=== PATIENT | female | born 1975 | race African-American/Black ===

== ENCOUNTER 2022-01-14 15:18 | Emergency (ER) | payer OTHER, SELFPAY ==
--- NOTE | ~2022-01-14 | CT_ITS ---
EXAMINATION: CT abdomen pelvis w con DATE: 01/14/2022 21:15 INDICATION: Left upper quadrant abdominal pain radiating to the back. TECHNIQUE: Computed tomography (CT) of the abdomen and pelvis was performed with 100 cc Omnipaque 300 intravenous contrast. The dose-length product was 1001.37 mGy-cm. Automated exposure control and ite rative reconstruction technique were employed. COMPARISON: None. FINDINGS: Lung bases are unremarkable. Heart size normal. No significant pleural or pericardial effus ion. There is mild thickening of the gastric wall, suspicious for gastritis. There is mild thickening of the descending and proximal sigmoid colon. Small fat-containing umbilical hernia. The spleen, pancreas, adrenal glands and kidneys are unremarkable. Fatty infiltration of the liver. G allbladder is present. No significant vascular abnormality. No lymphadenopathy. Uterus is retroverted . Bladder is not well distended for evaluation. No acute osseous abnormality. No free air or free flu id. IMPRESSION: 1. Mild gastric wall thickening, suspicious for gastritis. 2: Mild thickening of the descending and proximal sigmoid colon, suspicious for colitis. 3: Hepatic steatosis. Reviewed, dictated and finalized at location A. IMPRESSION: 1. Mild gastric wall thickening, suspicious for gastritis. 2: Mild thickening of the descending and proximal sigmoid colon, suspicious fo r colitis. 3: Hepatic steatosis.
[2022-01-14 16:35] VITALS: BP 155/83; PULSE 75; RESP 16; TEMP 36.1; O2SAT 98
[2022-01-14 20:13] LABS: Basophils Percent Auto 0.3 % (0.2-1.2); Eosinophils Absolute Auto 0.1 K/mm3 (0-0.3); Eosinophils Percent Auto 0.6 % (0-4.4); Hematocrit 41.8 % (37.0-47.0); Hemoglobin 13.2 g/dL (12.0-15.0); Immature Granulocyte Absolute 0.03 K/mm3 (0.00-0.031); Immature Granulocyte Percent A 0.3 % (0-0.5); Lymphocytes Absolute Auto 2.36 K/mm3 (0.9-3.2); Lymphocytes Percent Auto 23.8 % (18.3-44.2); Mean Corpuscular HGB Conc 31.6 g/dl (32-36); Mean Corpuscular Hemoglobin 28.9 pg (26-34); Mean Corpuscular Volume 91.7 fl (80-100); Mean Platelet Volume 9.4 fl (7.4-10.4); Monocytes Absolute Auto 0.8 K/mm3 (0.1-0.6); Monocytes Percent Auto 8.1 % (2.6-8.5); Neutrophils Absolute Auto 6.6 K/mm3 (1.3-6.7); Neutrophils Percent Auto 66.9 % (45.5-73.1); Platelet Count Result 391 k/mm3 (150-375); Red Blood Count 4.56 M/mm3 (4.2-5.4); Red Cell Distribution Width 13.2 % (11.5-14.5); White Blood Count 9.9 K/mm3 (4.5-10.0)
[2022-01-14 20:22] LABS: Appearance Urine Clear (Clear); Bilirubin Urine Negative (Negative); Color Urine Yellow (Yellow); Glucose Urine UA Negative (Negative); Ketones Urine Negative (Negative); Leukocyte Esterase Ur Negative LEU/UL (Negative); Nitrate Urine Negative (Negative); Protein Urine Negative (Negative); Specific Grav Ur 1.015 (1.001-1.035); Urobilinogen Urine 0.2 mg/dL (<2.0); pH Urine 6.5 (5.0-9.0)
[2022-01-14 20:22] LABS: Alanine Aminotransferase 14 U/L (6-35); Albumin Level 4.3 g/dL (3.5-5.1); Alkaline Phosphatase 82 U/L (38-126); Anion Gap 9 mmol/L (8-16); Aspartate Amino Transferase 20 U/L (14-36); Bilirubin,Total 0.3 mg/dL (0.2-1.3); Blood Urea Nitrogen 11 mg/dL (7-17); Calcium 8.9 mg/dL (8.4-10.2); Carbon Dioxide 28 mmol/L (22-30); Chloride 103 mmol/L (98-107); Estimated CRCL calculation 79 ml/min; Estimated Glomerular Filt Rate 60; Glucose 91 mg/dL (65-110); Lipase 73 U/L (23-300); Potassium 3.9 mmol/L (3.4-5.0); Sodium 140 mmol/L (137-145)
[2022-01-14 20:26] LABS: Add Urine Microscopic? YES; Blood Urine Trace-Intact (Negative); Mucus Urine Rare /lpf; RBC Urine 0-2 /hpf (0-2); Squamous Epithelial Cell Urine Many /hpf (Few); WBC Urine 0-3 /hpf
--- NOTE | 2022-01-14 20:31 | ED.ABDPAIN ---
HPI - Abdominal Pain General Chief Complaint: Abdominal Pain Stated Complaint: LUQ abdominal pain radiating to back x 6 days Time Seen by Provider: 01/14/22 20:17 History of Present Illness HPI narrative: 46-year-old female presents to the emergency room for evaluation of left upper quadrant pain and left flank pain. Patient states the pain began suddenly earlier today. Denies any nausea, vomiting, diarrhea or constipation. Denies fevers. Denies dysuria. Reports was recently diagnosed with GERD, but this pain feels different. Patient is concerned she might have pancreatitis that she had 3 alcoholic drinks a week ago. Related Data Home Medications Medication Instructions Recorded Confirmed No Home Medications 01/14/22 01/14/22 Allergies Allergy/AdvReac Type Severity Reaction Status Date / Time Penicillins Allergy Rash Verified 01/14/22 15:20 Review of Systems Review of Systems: CONSTITUTIONAL: Denies fever, chills, or sweats. EYES: Denies visual changes, redness, or discharge. ENT: Denies rhinorrhea, congestion, sore throat, or otalgia. CARDIOVASCULAR: Denies chest pain, palpitations, or edema. RESPIRATORY: Denies cough or dyspnea. GASTROINTESTINAL: Left upper quadrant abdominal pain, left flank pain GENITOURINARY: Denies dysuria or hematuria. SKIN: Denies rash or itching. MUSCULOSKELETAL: Denies back pain, joint pain, or myalgia. NEUROLOGIC: Denies headache, numbness, dizziness, or weakness. PSYCHIATRIC: Denies anxiety or depression. Exam Narrative: GENERAL: Well-appearing, well-nourished, no physical limitations, and in no acute distress. HEAD: Normocephalic, atraumatic. EYES: Conjunctivae normal, PERRLA and EOMI. CHEST: Clear to auscultation. No respiratory distress. No wheezes rales or rhonchi. No tenderness. HEART: Regular rate and rhythm. No murmur heard. Normal peripheral pulses. ABDOMEN: Soft, LUQ tenderness, nondistended, normal active bowel sounds. BACK: No CVA tenderness EXTREMITIES: Normal range of motion. No edema. No clubbing or cyanosis SKIN: Warm, dry, no rash. No noted wounds NEURO: No focal deficits. Alert and oriented x3. MAEW. CN's II-XI intact bilaterally, normal gait PSYCH: Cooperative. Normal mood and affect. Course Vital Signs Vital signs: Vital Signs Temperature 36.1 C L 01/14/22 16:35 Pulse Rate 75 01/14/22 16:35 Respiratory Rate 16 01/14/22 16:35 Blood Pressure 155/83 H 01/14/22 16:35 Pulse Oximetry 98 01/14/22 16:35 Oxygen Delivery Room Air 01/14/22 16:35 Temperature 36.8 C 01/14/22 20:36 Pulse Rate 71 01/14/22 20:36 Respiratory Rate 20 01/14/22 20:36 Blood Pressure 172/99 H 01/14/22 20:36 Pulse Oximetry 100 01/14/22 20:36 Oxygen Delivery Room Air 01/14/22 16:35 MDM - Abdominal Pain MDM Narrative Medical decision making narrative: 46-year-old female presented emergency room complaints of left upper quadrant pain. Exam concerning for superimposed biliary disease. CT scan shows no intra-abdominal abnormalities. Patient likely experiencing gastritis or colitis. Discussed findings with patient and follow-up with GI next week. Lab Data Result diagrams: 01/14/22 19:45 01/14/22 19:45 Labs: Lab Results 01/14/22 01/14/22 01/14/22 Range/Units 19:45 19:45 19:50 WBC 9.9 (4.5-10.0) K/mm3 RBC 4.56 (4.2-5.4) M/mm3 Hgb 13.2 (12.0-15.0) g/dL Hct 41.8 (37.0-47.0) % MCV 91.7 (80-100) fl MCH 28.9 (26-34) pg MCHC 31.6 L (32-36) g/dl RDW 13.2 (11.5-14.5) % Plt Count 391 H (150-375) k/mm3 MPV 9.4 (7.4-10.4) fl Immature Gran % (Auto) 0.3 (0-0.5) % Neut % (Auto) 66.9 (45.5-73.1) % Lymph % (Auto) 23.8 (18.3-44.2) % Dare % (Auto) 8.1 (2.6-8.5) % Eos % (Auto) 0.6 (0-4.4) % Baso % (Auto) 0.3 (0.2-1.2) % Lymph # (Auto) 2.36 (0.9-3.2) K/mm3 Dare # (Auto) 0.8 H (0.1-0.6) K/mm3 Eos # (Auto) 0.1 (0-0.3) K/mm3 Baso # (Au
[2022-01-14 20:36] VITALS: BP 172/99; PULSE 71; RESP 20; TEMP 36.8; O2SAT 100
[2022-01-14 21:53] VITALS: BP 147/89; PULSE 77; RESP 18; O2SAT 100
== END 2022-01-14 21:54 | disposition home or self-care (01) ==
PROVIDERS: Emergency Medicine; Emergency Provider Nurse Practitioner Family
DX: K29.70 Gastritis, unspecified, without bleeding (principal); K52.9 Noninfective gastroenteritis and colitis, unspecified; K21.9 Gastro-esophageal reflux disease without esophagitis; K76.0 Fatty (change of) liver, not elsewhere classified
CPT/HCPCS: 36415; 74177; 80053; 81001; 81025; 83690; 85025; 99284; Q9967

== ENCOUNTER 2023-01-30 08:05 | Outpatient (CLI) | payer OTHER, SELFPAY ==
[2023-01-30 13:11] LABS: Alanine Aminotransferase 17 U/L (6-35); Albumin Level 3.8 g/dL (3.5-5.1); Alkaline Phosphatase 71 U/L (38-126); Anion Gap 7 mmol/L (8-16); Aspartate Amino Transferase 23 U/L (14-36); Bilirubin,Total 0.6 mg/dL (0.2-1.3); Blood Urea Nitrogen 12 mg/dL (7-17); Calcium 8.7 mg/dL (8.4-10.2); Carbon Dioxide 27 mmol/L (22-30); Chloride 105 mmol/L (98-107); Cholesterol 170 mg/dL (0-200); Estimated Glomerular Filt Rate > 60; Glucose 80 mg/dL (65-110); HDL Direct 45 mg/dL; Potassium 4.3 mmol/L (3.4-5.0); Sodium 139 mmol/L (137-145); Triglycerides 67 mg/dL (<150)
[2023-01-30 13:22] LABS: LDL Cholesterol Direct 104 mg/dL
== END 2023-01-30 08:06 | disposition home or self-care (01) ==
DX: Z01.419 Encounter for gynecological examination (general) (routine) without abnormal findings (principal)
CPT/HCPCS: 36415; 80053; 80061